=== PATIENT | male | born 1995 | race Caucasian/White ===

== ENCOUNTER 2017-03-28 12:17 | Emergency (ER) | payer SELFPAY ==
[~2017-03-28] VITALS: Ht 185.4 cm; Wt 104.3 kg
[2017-03-28 12:17] VITALS: BP_SYST 130
[2017-03-28 12:46] VITALS: BP_SYST 128
== END 2017-03-28 12:46 ==
LOC: SED 12:17
DX: S00.81XA Abrasion of other part of head, initial encounter (principal); V19.9XXA Pedal cyclist (driver) (passenger) injured in unspecified traffic accident, initial encounter; Y93.89 Activity, other specified; Y92.89 Other specified places as the place of occurrence of the external cause; Y99.8 Other external cause status
CPT/HCPCS: 99283